=== PATIENT | male | born 2005 | race Caucasian/White ===

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

== ENCOUNTER 2023-05-10 15:14 | Outpatient (REF) | payer MEDICAID, SELFPAY ==
[2023-05-11 08:22] LABS: Syphilis Screen Nonreactive (Nonreactive)
[2023-05-11 08:36] LABS: HBS Num1 0.88 mIU/mL (0-7.99); HBc Num1 0.11 S/CO (0.00-0.79); HBsAGNum1 0.37 S/CO (0.00-0.99); HIV AB/AG Nonreactive (Nonreactive); HIV Num 1 0.05 S/CO (0.00-0.99); Hepatitis B Core Antibody Nonreactive (Nonreactive); Hepatitis B Surface Antigen Negative (Negative); ~Hepatitis B Surface Antibody NONREACTIVE (Nonreactive); ~Hepatitis C Antibody Nonreactive (Nonreactive)
[2023-05-11 15:00] LABS: CT PCR NOT DETECTED (Not Detect.); NG PCR NOT DETECTED (Not Detect.)
== END 2023-05-10 15:15 | disposition home or self-care (01) ==
LOC: HO.HHCL 15:14
PROVIDERS: Visit Provider Family Medicine
DX: Z11.3 Encounter for screening for infections with a predominantly sexual mode of transmission (principal)
CPT/HCPCS: 0353U; 36415; 86704; 86706; 86780; 86803; 87340; 87389

== ENCOUNTER 2024-06-19 14:08 | Outpatient (REF) | payer MEDICAID, SELFPAY ==
[2024-06-19 17:53] LABS: Estimated Average Glucose 77 mg/dL; Hemoglobin A1C 97.4182 umol/L; Hemoglobin A1c % 4.3 % (<6.0); Total Hemoglobin (HGBA1C) 4108.7032 umol/L
[2024-06-19 19:33] LABS: Alanine Aminotransferase 23 U/L (0-40); Albumin Level 4.5 g/dL (3.5-5.0); Anion Gap 12 (12-20); Aspartate Amino Transferase 27 U/L (5-37); Bilirubin Total 0.5 mg/dL (0.0-1.0); Blood Urea Nitrogen 10 mg/dL (9-16); Calcium 9.8 mg/dL (8.4-10.2); Carbon Dioxide 24 mmol/L (22-29); Chloride 108 mmol/L (96-108); Cholesterol 238 mg/dL (<200); Estimated Glomerular Filt Rate > 60; Glucose Random 86 mg/dL (60-115); HDL Cholesterol 52 mg/dL (>40); LDL Cholesterol Calculated 158 mg/dL (<100); Potassium 3.8 mmol/L (3.3-5.1); Sodium 140 mmol/L (135-145); Total Protein 8.4 g/dL (6.5-8.0); Triglycerides 140 mg/dL (<150)
[2024-06-19 19:36] LABS: TSH reflex Free T4 0.99 uIU/mL (0.32-4.0)
[2024-06-19 20:15] LABS: Alkaline Phosphatase 93 U/L (39-117)
[2024-06-19 21:10] LABS: Reflex LDLD? No
== END 2024-06-19 14:09 | disposition home or self-care (01) ==
LOC: HO.HHCL 14:08
PROVIDERS: Visit Provider Family Medicine
DX: R03.0 Elevated blood-pressure reading, without diagnosis of hypertension (principal); E66.3 Overweight; Z13.1 Encounter for screening for diabetes mellitus; Z13.220 Encounter for screening for lipoid disorders
CPT/HCPCS: 36415; 80053; 80061; 83036; 84443

== ENCOUNTER 2024-09-21 17:00 | Outpatient (REF) | payer MEDICAID, SELFPAY ==
--- OUTSIDE RECORDS SUMMARY | 2024-09-21 18:27 | XMS_ITS | Encounter Summary ---
Author Organization [facility] Address [address] [place] [address] 7t [place] [address] Care Team Providers Care Bottle Filler Name Role Phone Kierra Georges Jailene DRAKE Primary Care Provider [phone] Maxwell Mesa Primary Care Provider Unavail able Magdalena Bullock MD Primary Care Provider [phone] Encounter Details Date Type Department Care Team (Late st Contact Info) Description 05/20/2022 Abstract [facility] [address] [place] [address] Mao Ramirez DMD [address] [place] [address] Social History Tobacco Use Types Packs/Day Years Used Date Smoking Tobacco: Never Assessed Sex and Gender Information Value Date Recorded Sex Assigned at Male 04/06/2022 10:21 AM EDT Legal Sex Male 10:21 AM EDT Gender Identity Male 04/06/2022 10:21 AM EDT Sexual Orientation Straight 04/06/2022 10 :21 AM EDT documented as of this encounter Plan of Treatment Upcoming Encounters Date Type Department Care Team (Late st Contact Info) Description 10/09/2024 3:45 PM EDT Office Visit [facility] [address] [place], [place] [phone] Magdalena Bullock MD [address] [place] [address] documented as of this encounter Procedures Procedure Name Priority Date/Time Associated Diagnosis Comments 19 O SEALANT - PER TOOTH Routine 022 12:00 AM EST 18 O SEALANT - PER TOOTH Routine 12:00 AM EST 15 O SEALANT - PER TOOTH Routine 12:00 AM EST 30 O SEALANT - PER TOOTH Routine 12:00 AM EST 31 O SEALANT - PER TOOTH Routine 12:00 AM EST 30 INTERIM CARIES ARRESTING MEDICAMENT APPLICATION - PER TOOTH Routine 05/20/2022 12:00 AM EST 9 MIDF COMPOSITE FILLING Routine 12:00 AM EST 18 DO COMPOSITE FILLING Routine 05/20/20 12:00 AM EST 19 O COMPOSITE FILLING Routine 12:00 AM EST 14 O COMPOSITE FILLING Routine 12:00 AM EST 3 O COMPOSITE FILLING Routine 05/20/2022 12:00 AM EST 2 O COMPOSITE FILLING Routine 05/20/2022 12:00 AM EST documented in this encounter Visit Diagnoses Not on filedocumented in this encounter Care Teams Bottle Filler Relationship Specialty Start Date End Date Kierra Georges FNP PCP - General Family Medicine 12/14/21 10/05/22 Maxwell Mesa AGNP PCP - General Family Medicine 10/06/22 02/24/23 Magdalena Bullock MD [address] [place] [phone] PCP - General Family Medicine 02/25/23 documented as of this encounter
--- OUTSIDE RECORDS SUMMARY | 2024-09-21 18:27 | XMS_ITS | Encounter Summary ---
Author Organization [employer] Address [address] [facility] 7t [place] [address] Care Team Providers Care Glue Spreading Machine Operator Name Role Phone Kierra Georges Primary Care Provider [phone] Maxwell Mesa Primary Care Provider Unavail able Magdalena Bullock MD Primary Care Provider [phone] Reason for Visit * Reason Onset Date Comments Appointment Request 09/23/2022 Encounter Details Date Type Department Care Team (Late st Contact Info) Description 09/23/2022 Telephone [facility] [address] [place] [phone] Kierra Georges FNP [address] [facility] [place] [address] Appointment Request Social History Tobacco Use Types Packs/Day Years Used Date Smoking Tobacco: Never Assessed Sex and Gender Information Value Date Recorded Sex Assigned at Male 04/06/2022 10:21 AM EDT Legal Sex Male 10:21 AM EDT Gender Identity Male 04/06/2022 10:21 AM EDT Sexual Orientation Straight 04/06/2022 10 :21 AM EDT COVID-19 Exposure Response Date Recorded In the last 10 days, have yo u been in contact with someone who was confirmed or suspected to have Coronavirus/COVID-19? No / Unsure 09/23/2022 12:57 PM EDT documented as of this encounter Miscellaneous Notes * Telephone Encounter - Scott Mcfarland - 09/23/2022 12:41 PM EDT Tc from mother requesting an appt for Physcial but pt has not yet had a TP appt. Please contact mother at [phone] documented in this encounter Plan of Treatment Upcoming Encounters Date Type Department Care Team (Late st Contact Info) Description 10/09/2024 3:45 PM EDT Office Visit [facility] [address] [place] [address] Magdalena Bullock MD [address] [place] [address] documented as of this encounter Visit Diagnoses Not on filedocumented in this encounter Care Teams Glue Spreading Machine Operator Relationship Specialty Start Date End Date Kierra Georges FNP PCP - General Family Medicine 12/14/21 10/05/22 Maxwell Mesa AGNP PCP - General Family Medicine 10/06/22 02/24/23 Magdalena Bullock MD [address] [place] [id number] PCP - General Family Medicine 02/25/23 documented as of this encounter
--- OUTSIDE RECORDS SUMMARY | 2024-09-21 18:27 | XMS_ITS | Encounter Summary ---
Author Organization [employer] Address [address] [facility] 7t [place] [address] Care Team Providers Care Metal Burrer Name Role Phone Kierra Georges Primary Care Provider [phone] Maxwell Mesa Primary Care Provider Unavail able Magdalena Bullock MD Primary Care Provider [phone] Reason for Visit * Reason Onset Date Comments Referral 09/23/2022 Encounter Details Date Type Department Care Team (Late st Contact Info) Description 09/23/2022 Telephone [facility] [address] [place] [phone] Kierra Georges FNP [address] [facility] Dept [place] [address] Referral Social History Tobacco Use Types Packs/Day Years [...] encounter Miscellaneous Notes * Telephone Encounter - Tiffanie Garcia RN - 09/24/2022 10:19 AM EDT Placed call to pt regarding message below. Mom answered and was informed of referral placed and long wait list. Mom agrees with plan. * Telephone Encounter - Scott Mfcarland - 09/23/2022 12:39 PM EDT Tc from pt requesting a Referral for [facility]. Please contact pt at [phone] documented in this encounter Plan of Treatment Upcoming Encounters Date Type Department Care Team (Late st Contact Info) Description 10/09/2024 3:45 PM EDT Office Visit [facility] [address] [place] [phone] Magdalena Bullock MD [address] [place] [phone] documented as of this encounter Visit Diagnoses Not on filedocumented in this encounter Care Teams Metal Burrer Relationship Specialty Start Date End Date Kierra Georges FNP PCP - General Family Medicine 12/14/21 10/05/22 Maxwell Mesa AGNP PCP - General Family Medicine 10/06/22 02/24/23 Magdalena Bullock MD [address] [place] [phone] PCP - General Family Medicine 02/25/23 documented as of this encounter
--- OUTSIDE RECORDS SUMMARY | 2024-09-21 18:27 | XMS_ITS | Encounter Summary ---
Author Organization [employer] Address [address] [facility] 7t [place] [address] Care Team Providers Care Food Counter Worker Name Role Phone Magdalena Bullock MD Primary Care Provider [phone] Encounter Details Date Type Department Care Team (Latest Contact Info) Description 09/21/2024 Travel Social History Tobacco Use Types Packs/Day Years Used Date Smoking Tobacco: Never Smokeless Tobacco: Never Depression Answer Date Recorded Patient Health Questionnaire-9 Score 5 06/19/2024 Patient Health Questionnaire-9 Score 5 06/19/2024 Last PHQ-9: Questionnaire Data Not on file 0 06/19/2024 Housing Stability Answer Date Recorded What is your housing situation today? I have mikaela stovall 06/08/[address] you li ve. Do you have problems with any of the following? None of the above 06/08/2024 Food Insecurity Answer Date Recorded Within the past 12 months, y ou worried that your food would run out before you got money to buy more: Never True 06/08/2024 Within the past 12 months,th e food you bought just didn't last and you didn't have enough money to get more: Never True 07/2024 Transportation Answer Date Recorded In the past 12 months, has l ack of transportation kept you from medical appts, meetings, work or from getting things needed for daily living? No 06/08/2024 Utilities Answer Date Recorded In the past 12 months, has t he electric, gas, oil or water company threatened to shut off services in your home? No 06/08/2024 Depression Answer Date Recorded Patient Health Questionnaire-2 Score 1 06/19/2024 Internet Access Answer Date Recorded Internet Access Q1 Yes 06/08/2024 Internet Access Q2 Not on file 06/08/2024 Sex and Gender Information Value Date Recorded Sex Assigned at Male 04/06/2022 10:21 AM EDT Legal Sex Male 10:21 AM EDT Gender Identity Male 04/06/2022 10:21 AM EDT Sexual Orientation Straight 04/06/2022 10 :21 AM EDT documented as of this encounter Plan of Treatment Upcoming Encounters Date Type Department Care Team (Late st Contact Info) Description 10/09/2024 3:45 PM EDT Office Visit [facility] [address] [place] [address] Magdalena Bullock MD [address] [place] [address] documented as of this encounter Visit Diagnoses Not on filedocumented in this encounter Additional Health Concerns Assessment Noted Time PHQ-9 Depression Total Score: 5 06/19/19 25 1:31 PM EST documented as of this encounter Care Teams Food Counter Worker Relationship Specialty Start Date End Date Magdalena Bullock MD [address] [place] [address] PCP - General Family Medicine 02/25/23 documented as of this encounter
--- OUTSIDE RECORDS SUMMARY | 2024-09-21 18:27 | XMS_ITS | Encounter Summary ---
Author Organization [employer] Address [address] [facility] 7t [place] [address] Care Team Providers Care Bobcat Operator Name Role Phone Magdalena Bullock MD Primary Care Provider [phone] Reason for Visit * Reason Comments Cough Sore Throat Encounter Details Date Type Department Care Team (Late st Contact Info) Description 09/21/2024 2:40 PM EDT Office Visit [facility] [address] [place] [address] Mary Marmolejo DO [address] [place] [address] COVID-19 (Primary Dx) Social History Tobacco Use Types Packs/Day Years Used Date Smoking Tobacco: Never Smokeless Tobacco: Never Tobacco Cessation:Counseling Given: Not Answered Depression Answer Date Recorded Patient Health Questionnaire-9 [...] AM EDT documented as of this encounter Last Filed Vital Signs Vital Sign Reading Time Taken Comments Blood Pressure 135/81 09/21/2024 2:08 PM EDT Pulse 118 09/21/2024 2:08 PM EDT Temperature 36.8 ??C (98.3 ??F) 09/21/2024 2:08 PM ED T Respiratory Rate 19 09/21/2024 2:08 PM EDT Oxygen Saturation 96% 09/21/2024 2:08 PM EDT Inhaled Oxygen Concentration - - Weight 91.2 kg (201 lb) 09/21/2024 2:08 PM EDT Height 178.5 cm (5' 10.28 ) 09/21/2024 2:08 PM E DT Body Mass Index 28.61 09/21/2024 2:08 PM EDT documented in this encounter Progress Notes * Mary Marmolejo DO - 09/21/2024 2:40 PM EDT SUBJECTIVE Jasvir Osborne is a 19 y.o. male who presents for Sick Visit. He presents to [place] today c/o ST. He c/o intermittent tactile fevers and chills, ST and body aches since yesterday. He says it hurts to swallow. He denies any nasal congestion or rhinorrhea. No ear pain. No cough. No N/V/D. No rash. He took pain meds yesterday which helped. He has no sick contacts. He says he doesn't have much appetite and hasn't had anything to eat or dink today. History provided by: Patient corset maker used: Yes Sore Throat This is a new problem. The current episode started yesterday. The problem has been unchanged. The fever has been present for 1 to 2 days. Pertinent negatives include no abdominal pain, congestion, coughing, diarrhea, ear pain, headaches, hoarse voice, neck pain, shortness of breath, trouble swallowing or vomiting. Review of Systems Constitutional: Positive for appetite change, chills and fever. Negative for fatigue. HENT: Positive for sore throat. Negative for congestion, ear pain, hoarse voice, rhinorrhea, sinus pain and trouble swallowing. Eyes: Negative for visual disturbance. Respiratory: Negative for cough, shortness of breath and wheezing. Cardiovascular: Negative for chest pain, palpitations and leg swelling. Gastrointestinal: Negative for abdominal pain, constipation, diarrhea and vomiting. Musculoskeletal: Positive for myalgias. Negative for neck pain. Skin: Negative for rash. Neurological: Negative for dizziness and headaches. Patient Active Problem List Diagnosis Elevated blood pressure reading without diagnosis of hypertension Overweight No Known Allergies OBJECTIVE Vitals: 09/21/24 1408 BP: 135/81 BP Location: Left arm Patient Position: Sitting BP Cuff Size: Large adult Pulse: (!) 118 Resp: 19 Temp: 98.3 ??F (36.8 ??C) TempSrc: Oral SpO2: 96% Weight: 201 lb (91.2 kg) Height: 5' 10.28 (1.785 m) Physical Exam Constitutional: General: He is not in acute distress. Appearance: Normal appearance. HENT: Right Ear: Tympanic membrane, ear canal and external ear normal. Left Ear: Tympanic membrane, ear canal and external ear normal. Nose: No congestion or rhinorrhea. Mouth/Throat: Pharynx: Oropharyngeal exudate and posterior oropharyngeal erythema present. Cardiovascular: Rate and Rhythm: Normal rate and regular rhythm. Heart sounds: Normal heart sounds. No murmur heard. Pulmonary: Effort: Pulmonary effort is normal. Breath sounds: Normal breath sounds. No wheezing or rhonchi. Musculoskeletal: Cervical back: Neck supple. No tenderness. Lymphadenopathy: Cervical: No cervical adenopathy. Neurological: General: No focal deficit present. Mental Status: He is alert and oriented to person, place, and time. Cranial Nerves: No cranial nerve deficit. Motor: No weakness. Gait: Gait normal. Psychiatric: Mood and Affect: Mood normal. Office Visit on 09/21/2024 Component Date Value Ref Range Status Rapid COVID Ag 09/21/2024 Positive Final Rapid Strep A Screen 09/21/2024 Negative Negative, None Detected Final Influenza A 09/21/2024 Negative Negative, Indeterminate Final Influenza B 09/21/2024 Negative Negative, Indeterminate Final Assessment/Plan Diagnoses and all orders for this visit: COVID-19 Rapid COVID positive -provided reassurance -encouraged supportive care measures -advised stay well-hydrated -reviewed isolation measures -advised wear mask in shared spaces -advised avoid sharing household items -treat with paxlovid BID x 5 days -encouraged motrin prn -send throat culture for confirmatory testing -advised contact [facility] or go to ED if no improvement or sx worsen, he agrees with plans --Follow-up with PCP as scheduled or sooner prn-- Current Outpatient Medications: Blood Pressure Monitor [facility], Check BP daily, Disp: 1 each, Rfl: 0 ibuprofen 600 MG tablet, Take 1 tablet (600 mg) by mouth every 6 (six) hours if needed for mild pain., Disp: 40 tablet, Rfl: 1 Nirmatrelvir&Ritonavir 300/100 (Paxlovid, 300/100,) 20 x 150 MG & 10 x 100MG tablet therapypack, Take 1 Dose by mouth 2 times daily for 5 days., Disp: 30 each, Rfl: 0 Scribe Attestation: Alonzo Gtz, am serving as a scribe to document services personally performed by Mary Philippe, based on the patient's response to questions by provider and provider's statements to me. 09/21/24 3:09 PM Physicians Attestation: Mary Gtz DO, have reviewed the information by the scribe, Alonzo Dale, for accuracy and agree with its content. documented in this encounter Plan of Treatment Upcoming Encounters Date Type Department Care Team (Late st Contact Info) Description 10/09/2024 3:45 PM EDT Office Visit [address] [address] Magdalena Bullock MD [address] [place] [address] Scheduled Orders Name Type Priority Associated Diagnoses Orde r Schedule Culture, Throat Microbiology Routine COVID-19 Ordered: 09/21/2024 documented as of this encounter Procedures Procedure Name Priority Date/Time Associated Diagnosis Comments POCT INFLUENZA B (ID NOW RAPID MOLECULAR) Routine 09/21/2024 2:42 PM EDT COVID-19 POCT INFLUENZA A (ID NOW RAPID MOLECULAR) Routine 09/21/2024 2:42 PM EDT COVID-19 POCT RAPID COVID ANTIGEN Routine 09/21/2024 2:42 PM EDT COVID-19 POCT RAPID STREP A Routine 09/21/2024 2: 42 PM EDT COVID-19 documented in this encounter Results * Influenza B (ID NOW Rapid Molecular) (09/21/2024 2:42 PM EDT) Influenza B Negative Negative, Indeterminate [facility] Swab 09/21/2024 2:42 PM EDT Mary Marmolejo DO POINT OF CARE TEST ENTER/TAYLOR T ORDERABLES Final Result Performing Organization Address [facility]/ZIP Co de Phone Number [facility] [address] [place] [phone] * Influenza A (ID NOW Rapid Molecular) (09/21/2024 2:42 PM EDT) Influenza A Negative Negative, Indeterminate [facility] Swab 09/21/2024 2:42 PM EDT Mary Marmolejo DO POINT OF CARE TEST ENTER/TAYLOR T ORDERABLES Final Result Performing Organization Address [facility] Co de Phone Number [facility] [address] [place] [phone] * POCT rapid strep A manually resulted (09/21/2024 2:42 PM EDT) Rapid Strep A Screen Negative Negative, None Detected [facility] Swab 09/21/2024 2:42 PM EDT Mary Francie DO POINT OF CARE TEST ENTER/TAYLOR T ORDERABLES Final Result Performing Organization Address City/[facility]/ZIP Co de Phone Number [facility] [address] [place] [phone] * (ABNORMAL) POCT Rapid COVID Ag (09/21/2024 2:42 PM EDT) [facility] Signature Rapid COVID Ag Positive [facility] Swab 09/21/2024 2:42 PM EDT Mary Marmolejo DO POINT OF CARE TEST ENTER/TAYLOR T ORDERABLES Final Result Performing Organization Address [facility]/ZIP Co de Phone Number [facility] [address] [place] [phone] documented in this encounter Visit Diagnoses Diagnosis COVID-19- Primary documented in this encounter Additional Health Concerns Assessment Noted Time PHQ-9 Depression Total Score: 5 06/19/19 25 1:31 PM EST documented as of this encounter Care Teams Bobcat Operator Relationship Specialty Start Date End Date Magdalena Bullock MD [address] [place] [address] PCP - General Family Medicine 02/25/23 documented as of this encounter
--- OUTSIDE RECORDS SUMMARY | 2024-09-21 18:28 | XMS_ITS | Clinical Summary ---
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 30 each 09/21/2024 5 Active ibuprofen 600 MG tablet Take 1 tablet (600 mg) by mouth every 6 (six) hours if needed for mild pain. 40 tablet 1 09/21/2024 6 Active Active Problems Problem Noted Date Diagnosed Date Overweight 06/19/2024 Assessment & Plan (06/19/2024 2:00 PM EST): - Work on lifestyle modification Elevated blood pressure read ing without diagnosis of hypertension 05/10/2023 Assessment & Plan (06/26/2024 7:00 AM EST): -Goal BP less than 130/80 per ACC/AHA guideline, start pharmacological treatment > 140/90 -Recommend check BP at home -Continue working on lifestyle modification -BP check in 1 month with our nurse; if his home BP is elevated > 135/85 and/or clinic BP > 144/90, we will start valsartan 40 mg daily, olmesartan 5 mg daily, or telmisartan 20 mg daily. The choice depends on his insurance formulary. Resolved Problems Problem Noted Date Diagnosed Date Resolved Date Obesity 05/10/2023 06/19/2024 Encounters Date Type Department Care Team Description 09/21/2024 2:40 PM EDT Office Visit [facility] [address] [place] [address] Mary Marmolejo DO COVID-19 (Primary Dx) 09/21/2024 Travel 09/06/2024 1:30 PM EDT Office Visit [facility] [address], [place] [phone] Florina Rojo, BRIANDA 08/18/2024 Population Health Risk Score Community Care [facility] ([facility] Department [address] [phone] Provider, Population Health Generic 07/20/2024 1:30 PM EST Clinical Support [facility] [address] [place] [address] Diann Russo RN Elevated blood pressure reading without diagnosis of hypertension 07/20/2024 Travel from Last 3 Months Family History Medical History Relation Name Comments Diabetes Maternal Grandfather Hyperlipidemia Maternal Grandfather Asthma Mother Relation Name Status Comments Maternal Grandfather Mother Social History Tobacco Use Types Packs/Day Years [...] Orientation Straight 04/06/2022 10 :21 AM EDT Last Filed Vital Signs Vital Sign Reading [...] Mass Index 28.61 09/21/2024 2:08 PM EDT Plan of Treatment Upcoming Encounters Date Type Department Care Team (Late st Contact Info) Description 10/09/2024 3:45 PM EDT Office Visit [facility] [address] [place] [address] Magdalena Bullock MD [address] [place] [address] Health Maintenance Due Date Last Done Comments Dental X-Ray: Bitewings 2003 Dental X-Ray: Full Mouth 2003 Family Planning (PISQ) 2018 Dental Oral Exam 04/16/2023 10/13/2022 Dental Prophylaxis 04/16/2023 10/13/2022 COVID-19 Vaccine ( season) 2024 09/16/2021, 02/12/2021, 01/23/2021 Influenza Vaccine (#1) 2024 , 06/10/2016, 04/26/2015, Additional history exists DTaP/Tdap/Td Vaccines (7 - Td or Tdap) 03/27/2024 03/27/2014, 03/29/2007, 07/18/2004, Additional history exists Chlamydia and Gonorrhea Screening 05/10/2024 05/10/2023 SDOH Screening 06/08/2025 06/08/2024 Alcohol/Substance Use Screening 06/19/2025 06/19/2024 Depression Screening 06/19/2025 06/19/2024, 06/19/19 Tobacco Screening 09/21/2025 09/21/2024 Zoster Vaccines (1 of 2) 2053 RSV Patients and Patients Aged 60 years or older (1 - 1-dose 75+ series) 2078 Hepatitis B Vaccines Completed 2003, 2003, 2003 Pneumococcal Vaccine: Pediatrics (0 to 5 Years) and At-Risk Patients (6 to 49) Years) Aged Out 2003, 2003, 2003 No longer eligible based on patient's age to complete this topic HIB Vaccines Completed 03/29/2007, 2003 IPV Vaccines Completed 03/29/2007, 09/06, 2003, Additional history exists Hepatitis A Vaccines Completed 04/20/2013, 11/15/19 11 HPV Vaccines Completed 04/26/2015, 05/08, 03/27/2014 Meningococcal Vaccine Completed 08/21/2021, 014 HIV Screening Completed 05/10/2023 Hepatitis C Screening Completed 05/10/2023, 023 RSV under 20 months Aged Out No longe r eligible based on patient's age to complete this topic Rotavirus Vaccines Aged Out No longer eligible based on patient's age to complete this topic Procedures Procedure Name Priority Date/Time Associated Diagnosis Comments POCT INFLUENZA B (ID NOW RAPID MOLECULAR) Routine 09/21/2024 2:42 PM EDT COVID-19 POCT INFLUENZA A (ID NOW RAPID MOLECULAR) Routine 09/21/2024 2:42 PM EDT COVID-19 POCT RAPID STREP A Routine 09/21/2024 2: 42 PM EDT COVID-19 POCT RAPID COVID ANTIGEN Routine 09/21/2024 2:42 PM EDT COVID-19 CASE PRESENTATION, DETAILED AND EXTENSIVE TREATMENT PLANNING Routine 09/06/2024 1:30 PM EDT ORTHODONTIC RETENTION Routine 09/06/2024 1:30 PM EDT CHLAMYDIA/N. GONORRHOEAE RNA, TMA, UROGENITAL Routine 05/10/2023 3:21 PM EST Routine screening for STI (sexually transmitted infection) HEPATITIS C AB W/REFL TO HCV RNA, QN, PCR Routine 05/10/2023 3:18 PM EST Routine screening for STI (sexually transmitted infection) HIV 1/2 ANTIGEN/ANTIBODY, FOURTH GENERATION W/RFL Routine 05/10/2023 3:18 PM EST Routine screening for STI (sexually transmitted infection) PERIODIC ORAL EVALUATION - ESTABLISHED PATIENT Routine 10/13/2022 2:00 PM EDT PROPHYLAXIS - ADULT Routine 10/13/2022 1 :00 PM EDT Dental plaque from Last 3 Months or Most Recently Relevant to Health Maintenance Results * Influenza B (ID NOW Rapid Molecular) (09/21/2024 2:42 PM EDT) Influenza B Negative Negative, Indeterminate [facility] Swab 09/21/2024 2:42 PM EDT Mary Marmolejo DO POINT OF CARE TEST ENTER/TAYLOR T ORDERABLES Final Result [facility] [address] [place] [phone] * Influenza A (ID NOW Rapid Molecular) (09/21/2024 2:42 PM EDT) [facility] Influenza A Negative Negative, Indeterminate [facility] Swab 09/21/2024 2:42 PM EDT Mary Marmolejo DO POINT OF CARE TEST ENTER/TAYLOR T ORDERABLES Final Result Performing Organization Address [facility] Co de Phone Number [facility] [address] [place] [phone] * (ABNORMAL) POCT Rapid COVID Ag (09/21/2024 2:42 PM EDT) [facility] Rapid COVID Ag Positive [facility] Swab 09/21/2024 2:42 PM EDT Mary Marmolejo DO POINT OF CARE TEST ENTER/TAYLOR T ORDERABLES Final Result Performing Organization Address [facility] Co de Phone Number [facility] [address] [place] [phone] * POCT rapid strep A manually resulted (09/21/2024 2:42 PM EDT) [facility] Rapid Strep A Screen Negative Negative, None Detected [facility] Swab 09/21/2024 2:42 PM EDT Mary Francie DO POINT OF CARE TEST ENTER/TAYLOR T ORDERABLES Final Result Performing Organization Address [facility] de Phone Number [facility] [address] [place] [phone] * Chlamydia/N. Gonorrhoeae RNA, TMA, Urogenitial (05/10/2023 3:21 PM EST) [facility] CT PCR NOT DETECTED Not Detect. [facility] Comment:A not detected test result does not exclude the possibilityof infection because test results can be affected byimproper specimen collection, concurrent antibiotic therapy,or the number of organisms in the specimen which may bebelow the sensitivity of the test. As with many diagnostictests, results from the Xpert CT/NG assay should beinterpreted in conjunction with other laboratory andclinical data available to the clinician.Xpert CT/NG performance has not been evaluated in patientsless than 14 years of age. The assay should not be used forthe evaluationof suspected sexual abuse or for other medico-legalindications. Additional testing is recommended in anycircumstance when false positive or false negative resultscould lead to adverse medical, social or psychologicalconsequences. NG PCR NOT DETECTED Not Detect. [facility] Comment:A not detected test result does not exclude the possibilityof infection because test results can be affected byimproper specimen collection, concurrent antibiotic therapy,or the number of organisms in the specimen which may bebelow the sensitivity of the test. As with many diagnostictests, results from the Xpert CT/NG assay should beinterpreted in conjunction with other laboratory andclinical data available to the clinician.Xpert CT/NG performance has not been evaluated in patientsless than 14 years of age. The assay should not be used forthe evaluationof suspected sexual abuse or for other medico-legalindications. Additional testing is recommended in anycircumstance when false positive or false negative resultscould lead to adverse medical, social or psychologicalconsequences. Urine, Random 05/10/2023 3:2 1 PM EST 05/10/2023 3:49 PM EST Narrative [facility] - 05/11/2023 3:00 PM EST Urine us Magdalena Bullock MD LAB MICROBIOLOGY - GENERAL ORDER KOFFI Final Result [facility] [address] [place] [address] [phone] * Hepatitis C Antibody with Reflex to HCV, RNA, Quantitative, Real-Time PCR (05/10/2023 3:18 PM EST) Hepatitis C Antibody Nonreactive Nonreactive [facility] Comment:Antibodies to HCV no t detected; does not exclude early acuteHCV infection. Blood Venous blood specimen / Unknown 05/10/2023 3:18 PM EST 05/10/2023 5:26 PM EST Magdalena Bullock MD LAB BLOOD ORDERABLES Final Resul t Performing Organization Address [facility]/ZIP Co de Phone Number [facility] [address] [place] [phone] * HIV-1/2 Antigen and Antibodies, Fourth Generation, with Reflexes (05/10/2023 3:18 PM EST) [facility] HIV AB/AG Nonreactive Nonreactive [facility] Comment:HIV-1 p24 Ag and/or HIV-1/HIV-2 Ab not detected.A test result that is nonreactive does not exclude thepossibility of exposure to or infection with HIV-1 and/orHIV-2. Nonreactive results in this assay for individualswith prior exposure to HIV-1 and/or HIV-2 may be due toantigen and antibody levels that are below the limit ofdetection of this assay.The psicofxp HIV Ag/Ab Combo assay result andsupplemental assay results should be interpreted inconjunction with the patient's clinical presentation,history and other laboratory results. If the results areinconsistent with clinical evidence, additional testing issuggested to confirm the result. Blood Venous blood specimen / Unknown 05/10/2023 3:18 PM EST 05/10/2023 5:26 PM EST Magdalena Bullock MD LAB BLOOD ORDERABLES Final Resul t Performing Organization Address City/[facility]/ZIP Co de Phone Number [facility] [address] [place] [phone] from Last 3 Months or Most Recently Relevant to Health Maintenance Insurance [facility] [place] Care Teams Slug Press Operator Relationship Specialty Start Date End Date Magdalena Bullock MD [address] [place] [phone] PCP - General Family Medicine 02/25/23
== END 2024-09-21 17:01 | disposition home or self-care (01) ==
LOC: HO.HHCLNP 17:00
PROVIDERS: Visit Provider Family Medicine
DX: U07.1 COVID-19 (principal)
CPT/HCPCS: 87070